=== PATIENT | female | born 1955 | race Caucasian/White ===

== ENCOUNTER 2017-01-28 15:00 | Emergency (ER) | payer OTHER ==
[2017-01-28 15:05] VITALS: BMI 27.4
[2017-01-28 15:06] VITALS: BP 131/81; PULSE 96; RESP 18; TEMP 98.1; O2SAT 99
--- NOTE | 2017-01-28 15:33 | C.PDOC ---
History Of Present Illness Patient is presenting with a 3 week history of worsening pain to varicose veins on b/l upper legs. Patient reports that she saw her PMD for this complaints and was given rx by PMD for lower extremity ultrasound. Patient reports that she called for an appt for the ultrasound and was told that the earliest appt was in 2 weeks. She reports that she was told she could get the study immediately if she came to the ED. Time Seen by Provider: 01/28/17 15:15 Chief Complaint (Nursing): Lower Extremity Problem/Injury Past Medical History Vital Signs: Last Vital Signs Temp 98.1 F 01/28/17 15:05 Pulse 96 H 01/28/17 15:05 Resp 18 01/28/17 15:05 BP 131/81 01/28/17 15:05 Pulse Ox 99 01/28/17 15:37 - Medical History PMH: Asthma, Diabetes, Hypercholesterolemia Denies: Anxiety, Depression, Chronic Kidney Disease Surgical History: Cholecystectomy - [facility] Procedures DRAINAGE OF VESTIBULAR GLAND, OPEN APPROACH (09/21/15) OTHER SKIN & SUBQ I D (01/04/13) Family History: States: Unknown Family Hx - Social History Hx Tobacco Use: Yes Hx Alcohol Use: No Hx Substance Use: No - Immunization History Hx Tetanus Toxoid Vaccination: No Hx Influenza Vaccination: No Hx Pneumococcal Vaccination: No Review Of Systems Constitutional: Negative for: Fever, Chills Cardiovascular: Negative for: Chest Pain, Palpitations, Orthopnea, Edema, Light Headedness Respiratory: Negative for: Cough, Shortness of Breath, SOB with Excertion, Wheezing Gastrointestinal: Negative for: Nausea, Vomiting, Abdominal Pain, Diarrhea, Constipation Genitourinary: Negative for: Dysuria Musculoskeletal: Positive for: Leg Pain Neurological: Negative for: Weakness, Numbness Physical Exam - Physical Exam Appears: Well, Non-toxic, No Acute Distress Skin: Normal Color, Warm, Dry Head: Atraumatic, Normacephalic Eye(s): bilateral: Normal Inspection, PERRL, EOMI Extremity: Normal ROM, No Tenderness, No Calf Tenderness, Other (various veins b /l to upper thigh) ED Course And Treatment O2 Sat by Pulse Oximetry: 99 Medical Decision Making Medical Decision Making: Patient has chronic complaint and outpatient prescription. Duplex lab is already closed and unable to perform her test ordered by outpatient physician. She was given motrin for pain. Disposition - Disposition Disposition: HOME/ ROUTINE Disposition Time: 15:34 Condition: GOOD Additional Instructions: Schedule your outpatient vascular study at your earliest convenince. Follow-up with your PMD. Instructions: Varicose Veins (ED) - Clinical Impression Clinical Impression: Varicose veins of both lower extremities
== END 2017-01-28 15:48 | disposition home or self-care (01) ==
LOC: C.ER 15:00
DX: I83.813 Varicose veins of bilateral lower extremities with pain (principal)

== ENCOUNTER 2017-03-15 10:26 | Emergency (ER) | payer OTHER ==
[2017-03-15 10:27] VITALS: BMI 27.4
[2017-03-15 10:31] VITALS: BP 120/81; PULSE 100; RESP 18; TEMP 98.3; O2SAT 99
--- NOTE | 2017-03-15 10:55 | C.PDOC ---
History Of Present Illness 61 year old female presents to the ED with complaints of a recurrent lump to the right buttock vaginal area with pain for four days. Patient notes similar symptom a year ago. She denies discharge, fever, or other complaints at this time. Time Seen by Provider: 03/15/17 10:45 Chief Complaint (Nursing): Female Genitourinary History Per: Patient History/Exam Limitations: no limitations Onset/Duration Of Symptoms: Days (4 days) Current Symptoms Are (Timing): Still Present Recent travel outside of the [place]: No Past Medical History Reviewed: Historical Data, Nursing Documentation, Vital Signs Vital Signs: Last Vital Signs Temp 98.3 F 03/15/17 10:30 Pulse 100 H 03/15/17 10:30 Resp 18 03/15/17 10:30 BP 120/81 03/15/17 10:30 Pulse Ox 99 03/15/17 12:51 - Medical History PMH: Asthma, Diabetes, Hypercholesterolemia Surgical History: Cholecystectomy - [facility] Procedures DRAINAGE OF VESTIBULAR GLAND, OPEN APPROACH (09/21/15) OTHER SKIN & SUBQ I D (01/04/13) Family History: States: Unknown Family Hx - Social History Hx Tobacco Use: Yes Hx Alcohol Use: No Hx Substance Use: No - Immunization History Hx Tetanus Toxoid Vaccination: No Hx Influenza Vaccination: No Hx Pneumococcal Vaccination: No Review Of Systems Constitutional: Negative for: Fever, Chills Gastrointestinal: Negative for: Nausea, Vomiting, Abdominal Pain Genitourinary: Negative for: Dysuria Skin: Positive for: Other (mass to right upper inner thigh ) Physical Exam - Physical Exam Appears: Non-toxic, No Acute Distress Skin: Warm, Dry, No Rash, Other (8 cm x 6 cm mass to right upper proximal thigh with multiple heads and local erythema ) Head: Atraumatic Eye(s): bilateral: Normal Inspection Pelvic: Normal External Exam (Gross external exam is negative ) Extremity: Normal ROM, Capillary Refill (good capillary refill, less than two seconds ) ED Course And Treatment O2 Sat by Pulse Oximetry: 99 (room air ) Progress - Re-Evaluation Re-evaluation Note: 03/15/17 11:[address] ROGERS IF O.R. EVAL REQUIRED. D/W DR ROGERS AWARE OF ER FINDINGS WILL EVAL IN ER - Data Reviewed Data Reviewed: Lab, Old records Disposition Counseled Patient/Family Regarding: Diagnosis, Need For Followup, Rx Given - Disposition Referrals: Matthew Rogers Jr., MD [Staff Provider] - Disposition: HOME/ ROUTINE Disposition Time: 12:52 Condition: IMPROVED Prescriptions: Cefdinir [Omnicef] 300 mg PO BID #14 cap Instructions: Abscess Incision and Drainage (ED) Forms: [facility] (Algerian), Work Excuse - Clinical Impression Clinical Impression: Abscess - Scribe Statement The provider has reviewed the documentation as recorded by the Scribnikhil Russell All medical record entries made by the Katieibnikhil were at my direction and personally dictated by me. I have reviewed the chart and agree that the record accurately reflects my personal performance of the history, physical exam, medical decision making, and the department course for this patient. I have also personally directed, reviewed, and agree with the discharge instructions and disposition.
[2017-03-15] MEDS ORDERED: Lidocaine 2% w Epi 1:100,000 Inj IJ ONE (12:25)
--- NOTE | 2017-03-19 22:37 | OP ---
PROCEDURE DATE: 03/15/2017 PREOPERATIVE DIAGNOSIS: Rectal abscess. POSTOPERATIVE DIAGNOSIS: Rectal abscess. PROCEDURE PERFORMED: Incision and drainage of rectal abscess. The patient is a middle-aged woman with diabetes who presents with a large abscess on her buttock, very small amount of drainage externally. OPERATIVE FINDINGS: The emergency room physician provided for antibiotics postoperatively. PROCEDURE PERFORMED: The patient was given local anesthesia by injection. An incision was made and pus was drained. Culture was taken. Blood loss of procedure was less than 20 mL. There were no operative complications or problems. The operation carried on incision and drainage of right buttock/jesica-rectal abscess. Matthew Albert Jr., MD
== END 2017-03-15 13:39 | disposition home or self-care (01) ==
LOC: C.ER 10:26
DX: L02.31 Cutaneous abscess of buttock (principal); E11.9 Type 2 diabetes mellitus without complications; Z87.891 Personal history of nicotine dependence; E78.00 Pure hypercholesterolemia, unspecified

== ENCOUNTER 2017-12-25 11:15 | Emergency (ER) | payer SELFPAY ==
[2017-12-25 11:15] VITALS: BMI 27.4
[2017-12-25 11:35] VITALS: BP 95/59; PULSE 96; TEMP 98.4; O2SAT 95
[2017-12-25 11:48] VITALS: RESP 18
== END 2017-12-25 11:46 | disposition left against medical advice (07) ==
LOC: C.ER 11:15
DX: Z02.89 Encounter for other administrative examinations (principal); M25.561 Pain in right knee

== ENCOUNTER 2017-12-25 17:33 | Emergency (ER) | payer SELFPAY ==
[2017-12-25 17:34] VITALS: BMI 27.4
[2017-12-25 17:39] VITALS: PULSE 98
[2017-12-25] MEDS ORDERED: Albuterol-Ipratrop 3 mg / 0.5 (3 ml) UD INH STA ×3 (19:23→20:50)
[2017-12-25] MEDS ORDERED: Albuterol-Ipratrop 3 mg / 0.5 (3 ml) UD ONE ×2 (19:23→21:02)
--- NOTE | 2017-12-25 19:36 | C.PDOC ---
History Of Present Illness 62 y/o female with dm and asthma c/o 5 days of right knee pain and swelling after twisting it. pt also c/o wheezing, ran out of inhaler, no fever or chills. Time Seen by Provider: 12/25/17 18:35 Chief Complaint (Nursing): Lower Extremity Problem/Injury History Per: Patient History/Exam Limitations: no limitations Onset/Duration Of Symptoms: Days (5) Current Symptoms Are (Timing): Still Present Severity: Moderate Recent travel outside of the [place]: No - Knee Description Of Injury: Twisted Past Medical History Reviewed: Historical Data, Nursing Documentation, Vital Signs Vital Signs: Last Vital Signs Temp 98.1 F 12/25/17 21:25 Pulse 98 H 12/25/17 21:25 Resp 18 12/25/17 21:25 BP 125/77 12/25/17 21:25 Pulse Ox 97 12/25/17 21:45 - Medical History PMH: Asthma, Diabetes, Hypercholesterolemia Denies: Anxiety, Depression, Chronic Kidney Disease Surgical History: Cholecystectomy - [facility] Procedures DRAINAGE OF VESTIBULAR GLAND, OPEN APPROACH (09/21/15) OTHER SKIN & SUBQ I D (01/04/13) Family History: States: Unknown Family Hx - Social History Hx Tobacco Use: Yes Hx Alcohol Use: No Hx Substance Use: No - Immunization History Hx Tetanus Toxoid Vaccination: No Hx Influenza Vaccination: No Hx Pneumococcal Vaccination: No Review Of Systems Constitutional: Negative for: Fever, Chills Cardiovascular: Negative for: Chest Pain Respiratory: Positive for: Cough (chronic), Shortness of Breath Gastrointestinal: Negative for: Vomiting, Abdominal Pain Skin: Negative for: Rash Neurological: Negative for: Weakness, Numbness Physical Exam - Physical Exam Appears: Non-toxic, No Acute Distress, Other (uncomfortable) Skin: Warm, Dry Head: Atraumatic, Normacephalic Nose: No Discharge Oral Mucosa: Moist Neck: Supple Cardiovascular: Rhythm Regular, No Murmur Respiratory: No Rales, No Rhonchi, Wheezing Gastrointestinal/Abdominal: Soft, No Tenderness Back: No Vertebral Tenderness Extremity: Capillary Refill (less than 2 sec), Swelling (right knee swollen, tender to medical aspect, painful rom, no erythema or warmth noted, no posterior calf tenderness. ), Other (left le: non tender rom left knee. ) Pulses: Left Dorsalis Pedis: Normal, Right Dorsalis Pedis: Normal Neurological/Psych: Oriented x3, Normal Speech, Normal Cognition, Normal Motor, Normal Sensation ED Course And Treatment O2 Sat by Pulse Oximetry: 97 Medical Decision Making Medical Decision Making: pt with right swollen knee s/p twisting it- xray wheezing x 2 days, ran out of inhaler. brittnee re-evkei [id number] pt with resolved wheezing. will d/c with albuterol mdi pt with no acute fx noted on right knee xray, possible arthritis and joint effusion, feels much better with knee immobilizer,. d/c home with clinic follow up Disposition Counseled Patient/Family Regarding: Studies Performed, Diagnosis, Need For Followup, Rx Given - Disposition Referrals: [facility] [Outside] Disposition: HOME/ ROUTINE Disposition Time: 21:40 Condition: IMPROVED Additional Instructions: Please use 2 puffs of inhaler every 4-6 hours as needed. Wear knee immobilizer for comfort, elevate right leg when possible to reduce swelling. cold compresses to right knee. Please return to hospital tomorrow to apply for [facility] so you can make a follow up clinic appointment. Return to ER for any worse symptoms. Prescriptions: Albuterol HFA [Ventolin HFA 90 mcg/actuation (8 g)] 2 puff IH Q6 #1 inhaler Instructions: Asthma, Adult (DC), Knee Immobilizer (DC), Knee Sprain (DC) Forms: [facility] (Tajik), General Discharge Instructions - Clinical Impression Clinical Impression: Asthma, Right knee sprain
[2017-12-25 21:28] VITALS: BP 125/77; RESP 18; TEMP 98.1
[2017-12-25 21:41] VITALS: O2SAT 97
--- NOTE | 2017-12-26 07:31 | RAD ---
PROCEDURE: Right Knee Radiographs. HISTORY: twisted knee, pain and swelling COMPARISON: None. FINDINGS: BONES: No fracture identified. JOINTS: No dislocation seen. There is mild narrowing medial joint space compartment. There is also narrowing of the patellofemoral joint space compartment. There is tricompartmental periarticular osteophyte formation. Osteophytic spurring also noted of the tibial spines. JOINT EFFUSION: [id number] joint effusion. OTHER FINDINGS: None. IMPRESSION: No fracture or dislocation identified. Osteoarthritic changes as above. Joint effusion as above.
== END 2017-12-25 21:52 | disposition home or self-care (01) ==
LOC: C.ER 17:33
DX: S83.91XA Sprain of unspecified site of right knee, initial encounter (principal); X50.9XXA Other and unspecified overexertion or strenuous movements or postures, initial encounter; J45.909 Unspecified asthma, uncomplicated

== ENCOUNTER 2018-10-07 12:12 | Emergency (ER) | payer MEDICARE ==
[2018-10-07 12:32] VITALS: BMI 29.2
--- NOTE | 2018-10-07 13:48 | C.PDOC ---
History Of Present Illness 63 y/o female presents to the ED for evaluation of a lump under her left breast which she noticed today. Patient states she can only feel the lump when lying flat, otherwise it does not bother her. She also reports feeling nauseous on and off for the past week. She denies any vomiting, diarrhea, fever, chills, chest pain, or SOB. Patient also reports new-onset constipation this week, last BM was 2 days ago. She notes a history of similar lump, and states she had two breast lumps removed in the past. Time Seen by Provider: 10/07/18 13:09 Chief Complaint (Nursing): Abdominal Pain History Per: Patient History/Exam Limitations: no limitations Onset/Duration Of Symptoms: Days (x 1) Current Symptoms Are (Timing): Still Present Associated Symptoms: Nausea, Constipation Last Bowel Movement: Days Ago (x 2) Past Medical History Reviewed: Historical Data, Nursing Documentation, Vital Signs Vital Signs: Last Vital Signs Temp 98.7 F 10/07/18 12:31 Pulse 90 10/07/18 12:31 Resp 17 10/07/18 12:31 BP 129/82 10/07/18 12:31 Pulse Ox 100 10/07/18 12:31 - Medical History PMH: Asthma, Diabetes (Insipidus), Hypercholesterolemia Denies: Anxiety, Depression, Chronic Kidney Disease Surgical History: Cholecystectomy, Hernia Repair Other Surgeries: Left breast surgical biopsy, Orthopedic knee surgery - [facility] Procedures DRAINAGE OF VESTIBULAR GLAND, OPEN APPROACH (09/21/15) OTHER SKIN & SUBQ I D (01/04/13) Family History: States: Unknown Family Hx - Social History Hx Tobacco Use: Yes Hx Alcohol Use: No Hx Substance Use: No - Immunization History Hx Tetanus Toxoid Vaccination: No Hx Influenza Vaccination: No Hx Pneumococcal Vaccination: No Review Of Systems Except As Marked, All Systems Reviewed And Found Negative. Constitutional: Negative for: Fever, Chills Cardiovascular: Negative for: Chest Pain Respiratory: Negative for: Cough, Shortness of Breath Gastrointestinal: Positive for: Nausea, Constipation, Other (Lump near left rib cage/under breast). Negative for: Vomiting, Abdominal Pain, Diarrhea Musculoskeletal: Negative for: Back Pain Skin: Negative for: Rash Neurological: Negative for: Weakness, Numbness Physical Exam - Physical Exam Appears: Non-toxic, No Acute Distress Skin: Warm, Dry, No Rash Head: Atraumatic, Normacephalic Eye(s): bilateral: Normal Inspection, PERRL, EOMI Oral Mucosa: Moist Neck: Normal ROM Chest: Symmetrical, Other (deep subcutaneous mobile mass palpable over the lower rib cage of the left chest wall) Cardiovascular: Rhythm Regular, No Murmur Respiratory: Normal Breath Sounds, No Accessory Muscle Use, Other (NARD) Gastrointestinal/Abdominal: Soft, No Tenderness, No Distention, Other (No gross abdominal asymmetry) Extremity: Bilateral: Atraumatic, Normal Color And Temperature, Normal ROM Neurological/Psych: Oriented x3, Normal Speech ED Course And Treatment - Laboratory Results Result Diagrams: 10/07/18 14:24 10/07/18 14:24 O2 Sat by Pulse Oximetry: 100 (RA) Pulse Ox Interpretation: Normal - Radiology CXR: Interpreted by Me, Viewed By Me CXR Interpretation: Yes: No Acute Disease - CT Scan/US CT A/P Other Rad Studies (CT/US): Read By Radiologist, Radiology Report Reviewed CT/US Interpretation: Accession No. : [id number]. Patient Name / ID : DALLAS RILEY E / [id number]. Exam Date : 10/07/2018 16:08:43 ( Approved ). Study Comment : Sex / Age : F / 63Y. Creator : Dara Prieto. Dictator : Fern Mon MD. Admitting Counselor : Psychiatric Registered Nurse : Fern Mon MD. Approver2 : Report Date : 10/07/2018 16:19:54. My Comment : . PROCEDURE: CT Abdomen and Pelvis with oral and IV contrast. HISTORY: LUQ/LOWER CHEST WALL MASS, abd pain. COMPARISON: CT abdomen and pelvis without contrast performed 10/22/15, chest x-ray performed 10/07/18. TECHNIQUE: Contiguous axial images of the abdomen and pelvis. Oral and IV contrast was administered. Coronal and Sagittal reformats generated and reviewed. Contrast dose: 100 mL Visipaque 320 IV. Radiation dose: Total exam DLP = 977.14 mGy-cm. This CT exam was performed using one or more of the following dose reduction techniques: Automated exposure control, adjustment of the mA and/or kV according to patient size, and/or use of iterative reconstruction technique. FINDINGS: LOWER THORAX: No visible consolidation, pleural effusion, or pneumothorax. LIVER: Unremarkable. GALLBLADDER AND BILE DUCTS: Cholecystectomy clips. PANCREAS: Unremarkable. SPLEEN: Unremarkable. ADRENALS: Unremarkable. KIDNEYS AND URETERS: The kidneys enhance symmetrically. No hydronephrosis or obstructing renal calculus. BLADDER: The urinary bladder appears unremarkable. REPRODUCTIVE: Uterus is present. APPENDIX: The appendix appears within normal limits of caliber. No secondary signs of acute appendicitis. BOWEL: The stomach is nondistended. The bowel loops appear within normal limits of caliber without evidence of intestinal obstruction. Colonic wall thickening of the mid transverse colon may be exaggerated by under distension/contraction. Moderate constipation. PERITONEUM: No significant free fluid. No definite free air. LYMPH NODES: No bulky lymphadenopathy identified. VASCULATURE: No aortic aneurysm. Atherosclerotic calcifications of the aorta. BONES: Degenerative changes. OTHER FINDINGS: No appreciable soft tissue/left upper quadrant mass identified. IMPRESSION: Colonic wall thickening of the mid transverse colon may be exaggerated by under distension/contraction. Correlate clinically possibility of colitis. Further evaluation may be considered with colonoscopy if indicated. Moderate constipation. Progress - Re-Evaluation Re-evaluation Note: 10/07/18 17:08 COMFORTABLE NAD LABS, CT WNL. FU PMD - Data Reviewed Data Reviewed: Lab, Diagnostic imaging, Old records Medical Decision Making Medical Decision Making: Impression: Breast mass, probable lipoma Plan: - Labs - Chest x-ray - CT Abdomen/Pelvis - Reassess Disposition Counseled Patient/Family Regarding: Studies Performed, Diagnosis, Need For Followup - Disposition Referrals: YOUR,PMD [Other] Disposition: HOME/ ROUTINE Disposition Time: 17:09 Condition: IMPROVED Prescriptions: Magnesium Citrate [[facility] Magnesium Citrate] 300 ml PO ONCE #1 bottle Instructions: Constipation, Adult (DC) Forms: [facility] (Uzbek) - Clinical Impression Clinical Impression: Chest wall discomfort, Abdominal wall pain, Constipation - Scribe Statement The provider has reviewed the documentation as recorded by the Fernanda Spaulding Provider Attestation: All medical record entries made by the Scribe were at my direction and personally dictated by me. I have reviewed the chart and agree that the record accurately reflects my personal performance of the history, physical exam, medical decision making, and the department course for this patient. I have also personally directed, reviewed, and agree with the discharge instructions and disposition.
[2018-10-07] MEDS ORDERED: Iohexol 240 (50 ml) PO STA (13:49)
[2018-10-07] MEDS ORDERED: Iohexol 240 (50 ml) ONE (14:07)
[2018-10-07 14:27] LABS: BASO % 0.6 % (0.0-2.0); EOS # 0.1 K/uL (0.0-0.7); EOS % 0.7 % (0.0-4.0); HEMOGLOBIN 14.9 g/dL (11.0-16.0); LYMPH # 2.5 K/uL (1.0-4.3); LYMPH % 34.7 % (20.0-40.0); MEAN CELL VOLUME 90.5 fL (81.0-99.0); MEAN CORPUSCULAR HGB CONC 34.3 g/dL (33.0-37.0); MEAN PLATELET VOLUME 9.5 fL (7.2-11.7); MONO # 0.4 K/uL (0.0-0.8); NEUT # 4.1 K/uL (1.8-7.0); NRBC % 0.1 % (0.0-2.0); RBC 4.82 Mil/uL (3.80-5.20); WHITE BLOOD COUNT 7.1 K/uL (4.8-10.8)
[2018-10-07 14:42] LABS: ALB/GLOB RATIO 1.8 (1.0-2.1); ALBUMIN 4.1 g/dL (3.5-5.0); ALT/SGPT 8 U/L (9-52); AST/SGOT 21 U/L (14-36); BLOOD UREA NITROGEN 12 mg/dL (7-17); CALCIUM 9.5 mg/dl (8.6-10.4); GFR NON-AFRICAN AMERICAN > 60; LIPASE 25 U/L (23-300)
[2018-10-07] MEDS ORDERED: Iodixanol 320 MG/ML 100 ML BOTTLE IV ONE (15:14)
[2018-10-07 15:30] VITALS: RESP 18
--- NOTE | 2018-10-07 15:46 | RAD ---
HISTORY: L CHEST WALL MASS COMPARISON: Chest x-ray performed 04/19/15 TECHNIQUE: Chest PA and lateral FINDINGS: Examination limited by habitus. LUNGS: No focal consolidation. Please note that chest x-ray has limited sensitivity for the detection of pulmonary masses. PLEURA: No significant pleural effusion identified. No definite pneumothorax . CARDIOVASCULAR: Heart size appears within normal limits. Atherosclerotic calcifications of the aorta. OSSEOUS STRUCTURES: Degenerative changes. VISUALIZED UPPER ABDOMEN: Elevation/eventration of the right hemidiaphragm. OTHER FINDINGS: None. IMPRESSION: No focal consolidation.
--- NOTE | 2018-10-07 17:02 | CT ---
PROCEDURE: CT Abdomen and Pelvis with oral and IV contrast. HISTORY: LUQ/LOWER CHEST WALL MASS, abd pain COMPARISON: CT abdomen and pelvis without contrast performed 10/22/15, chest x-ray performed 10/07/18 TECHNIQUE: Contiguous axial images of the abdomen and pelvis. Oral and IV contrast was administered. Coronal and Sagittal reformats generated and reviewed. Contrast dose: 100 mL Visipaque 320 IV Radiation dose: Total exam DLP = 977.14 mGy-cm. This CT exam was performed using one or more of the following dose reduction techniques: Automated exposure control, adjustment of the mA and/or kV according to patient size, and/or use of iterative reconstruction technique. FINDINGS: LOWER THORAX: No visible consolidation, pleural effusion, or pneumothorax. LIVER: Unremarkable. GALLBLADDER AND BILE DUCTS: Cholecystectomy clips. PANCREAS: Unremarkable. SPLEEN: Unremarkable. ADRENALS: Unremarkable. KIDNEYS AND URETERS: The kidneys enhance symmetrically. No hydronephrosis or obstructing renal calculus. BLADDER: The urinary bladder appears unremarkable. REPRODUCTIVE: Uterus is present. APPENDIX: The appendix appears within normal limits of caliber. No secondary signs of acute appendicitis. BOWEL: The stomach is nondistended. The bowel loops appear within normal limits of caliber without evidence of intestinal obstruction. Colonic wall thickening of the mid transverse colon may be exaggerated by under distension/contraction. Moderate constipation. PERITONEUM: No significant free fluid. No definite free air. LYMPH NODES: No bulky lymphadenopathy identified. VASCULATURE: No aortic aneurysm. Atherosclerotic calcifications of the aorta. BONES: Degenerative changes. OTHER FINDINGS: No appreciable soft tissue/left upper quadrant mass identified. IMPRESSION: Colonic wall thickening of the mid transverse colon may be exaggerated by under distension/contraction. Correlate clinically possibility of colitis. Further evaluation may be considered with colonoscopy if indicated. Moderate constipation. Case discussed with Dr. Cooper on 10/07/18 at 4:57 p.m.
[2018-10-07 17:48] VITALS: BP 122/80; PULSE 76; TEMP 98; O2SAT 95
== END 2018-10-07 17:48 | disposition home or self-care (01) ==
LOC: C.ER 12:12
DX: R07.89 Other chest pain (principal); K59.00 Constipation, unspecified; R10.9 Unspecified abdominal pain
CPT/HCPCS: 71046; 74177; 80053; 83690; 85025; 99285; Q9966; Q9967

== ENCOUNTER 2018-12-06 12:05 | Emergency (ER) | payer MEDICARE ==
[2018-12-06 12:06] VITALS: BMI 27.4
--- NOTE | 2018-12-06 12:45 | C.PDOC ---
History Of Present Illness 63 y/o F p/w dysuria x 1 week. Pain is burning in character, intermittent, occurs with urination. States does not feel like yeast infections that patient has had numerous times in the past. Denies fever, chills, chest pain, dyspnea currently, vomiting, diarrhea. Time Seen by Provider: 12/06/18 12:15 Chief Complaint (Nursing): Female Genitourinary Past Medical History Vital Signs: Last Vital Signs Temp 98.1 F 12/06/18 12:20 Pulse 100 H 12/06/18 12:20 Resp 18 12/06/18 12:20 BP 112/70 12/06/18 12:20 Pulse Ox 100 12/06/18 12:20 Primary Care Provider: Danielito Mathis V - Medical History PMH: Asthma, Diabetes (Insipidus), Hypercholesterolemia Denies: Anxiety, Depression, Chronic Kidney Disease Surgical History: Cholecystectomy, Hernia Repair - [facility] Procedures DRAINAGE OF VESTIBULAR GLAND, OPEN APPROACH (09/21/15) OTHER SKIN & SUBQ I D (01/04/13) Family History: States: No Known Family Hx - Social History Hx Tobacco Use: Yes Hx Alcohol Use: No Hx Substance Use: No - Immunization History Hx Tetanus Toxoid Vaccination: No Hx Influenza Vaccination: No Hx Pneumococcal Vaccination: No Review Of Systems Except As Marked, All Systems Reviewed And Found Negative. Constitutional: Negative for: Fever Cardiovascular: Negative for: Chest Pain Physical Exam - Physical Exam Additional Physical Exam Comments: Constitutional: No acute distress. Head: Normocephalic. Atraumatic. Eyes: PERRL. ENT: Moist mucous membranes. Neck: Supple. Cardiovascular: Regular rate. Radial pulse 2+ bilaterally. Chest: No tenderness. Respiratory: Clear to auscultation bilaterally. GI: Soft. Nontender. Nondistended. Back: No CVA tenderness. Musculoskeletal: No tenderness or swelling of extremities. Skin: No rash. Neurologic: Alert, no focal deficit. ED Course And Treatment O2 Sat by Pulse Oximetry: 100 (RA) Pulse Ox Interpretation: Normal Medical Decision Making Medical Decision Making: UA show UTI. Culture sent. Sensitive in past to Macrobid. F/u PMD, return to ED for worsening pain, fever, back pain, dyspnea, vomiting, or any other problem. Disposition - Disposition Disposition: HOME/ ROUTINE Disposition Time: 13:30 Condition: STABLE Prescriptions: Nitrofurantoin Macrocrystals [Macrobid] 100 mg PO BID #20 cap Instructions: Urinary Tract Infections in Adults Forms: [facility] (Telugu) - Clinical Impression Clinical Impression: UTI (urinary tract infection)
[2018-12-06 13:11] LABS: SQUAMOUS EPITHIAL 2 /hpf (0-5); URINE BACTERIA RARE (<OCC); URINE BILIRUBIN NEGATIVE (NEGATIVE); URINE BLOOD NEGATIVE (NEGATIVE); URINE CLARITY Hazy (Clear); URINE COLOR Yellow (YELLOW); URINE GLUCOSE (UA) 3+ mg/dL (Normal); URINE LEUKOCYTE ESTERASE 2+ Leu/uL (Negative); URINE PROTEIN NEGATIVE (NEGATIVE)
[2018-12-06 14:25] VITALS: BP 110/74; PULSE 89; RESP 16; TEMP 97.7; O2SAT 96
== END 2018-12-06 14:24 | disposition home or self-care (01) ==
LOC: C.ER 12:05
DX: N39.0 Urinary tract infection, site not specified (principal)